=== PATIENT | male | born 1980 | race Two or more races ===

== ENCOUNTER → 2024-09-20 | Emergency (ER) | payer OTHER ==
[~2024-09-20] VITALS: Ht 180.3 cm; Wt 88.5 kg
[~2024-09-20] MED LIST: KETOROLAC TROMETHAMINE 30 MG VIAL IM ONE; KETOROLAC TROMETHAMINE 30 MG VIAL ONE
== END | disposition left against medical advice (07) ==
LOC: ER 11:35
DX: K40.90 Unilateral inguinal hernia, without obstruction or gangrene, not specified as recurrent (principal)